=== PATIENT | male | born 1975 | race Caucasian/White ===

== ENCOUNTER 2023-05-27 00:21 | Emergency (ER) | payer MEDICAID, SELFPAY ==
[2023-05-27 00:26] VITALS: BP 122/92; PULSE 71; TEMP 36.5; O2SAT 100
--- NOTE | 2023-05-27 00:34 | W.ED.GENAD ---
Discharge Plan Discharge Details Chief Complaint: Suicide-Atempt Clinical Impression: Suicidal behavior Primary Care Provider: Unknown,Unknown ED Provider: J Carlos Greenwood Home Meds and New Rx's Prescriptions: No Action aripiprazole [Abilify] 2 mg tablet 2 mg PO DAILY Patient Comments: has not taken in 3 months. 7/ MG sertraline [Zoloft] 100 mg tablet 100 mg PO DAILY bupropion HCl 300 mg tablet extended release 24 hr 300 mg PO QAM Patient Comments: has not taken in 3 months. 725/ MG famotidine [Pepcid] 20 mg tablet 20 mg PO DAILY Patient Comments: has not taken in 3 months. 7/ MG ibuprofen 800 mg tablet 800 mg PO Q8H PRN (Reason: pain) Qty: 42 0RF Patient Comments: has not taken in 3 months. 05/27/ MG cyclobenzaprine 7.5 mg tablet See Rx Instructions PO Q8H Qty: 21 0RF Patient Comments: has not taken in 3 months. 7/ MG Rx Instructions: 7 g-1-2 tabs PO every 8 hours; Medical Decision Making This is a 48-year-old male with a past medical history of depression and suicidality who presents today via [facility] police for mental health assessment. Per [facility] police the said that the patient has stopped taking his medications for the last 2 months. The patient admits this is well. He states he stopped taking them because they were not helping at all. He has been admitted before in the past to [facility] for mental health treatment. He was found by [facility] police on the side of the road today stating that I will just jump in front of a car to . He denies any other homicidal ideations or other suicidal ideations or plans. Patient denies any alcohol use or IV drug use. No other complaints at this time. No other modifying factors. He denies any auditory or visual hallucinations. M demonstrates an upset and slightly confrontational male. No signs of intoxication. Patient appears medically stable. Certainly there is concern for patient's mental health, as well as his current suicidality and plan. We will reach out to mental health for further discussion of potential inpatient admission. Mental health recommends inpatient management. Patient will be signed out to my colleague Dr. Wisam Ponce pending placement. HPI General Date/Time Provider Initiated Documentation: 05/27/23 00:31. HPI Narrative: This is a 48-year-old male with a past medical history of depression and suicidality who presents today via [facility] police for mental health assessment. Per [facility] police the said that the patient has stopped taking his medications for the last 2 months. The patient admits this is well. He states he stopped taking them because they were not helping at all. He has been admitted before in the past to [facility] for mental health treatment. He was found by [facility] police on the side of the road today stating that I will just jump in front of a car to . He denies any other homicidal ideations or other suicidal ideations or plans. Patient denies any alcohol use or IV drug use. No other complaints at this time. No other modifying factors. He denies any auditory or visual hallucinations. Related Data Home Medications Medication Instructions Recorded Confirmed aripiprazole 2 mg tablet (Abilify) 2 mg PO DAILY 06/07/21 05/27/23 bupropion HCl 300 mg 24 hr tablet, 300 mg PO QAM 06/07/21 05/27/23 extended release cyclobenzaprine 7.5 mg tablet See Rx Instructions PO Q8H #21 tabs 06/07/21 05/27/23 famotidine 20 mg tablet (Pepcid) 20 mg PO DAILY 06/07/21 05/27/23 ibuprofen 800 mg tablet 800 mg PO Q8H PRN pain #42 tabs 06/07/21 05/27/23 sertraline 100 mg tablet (Zoloft) 100 mg PO DAILY 06/07/21 05/27/23 Previous Rx's Medication Instructions Recorded cyclobenzaprine 7.5 mg tablet See Rx Instructions PO Q8H #21 tabs 06/07/21 ibuprofen 800 mg tablet 800 mg PO Q8H PRN pain #42 tabs 06/07/21 Allergies Allergy/AdvReac Type Severity Reaction Status Date / Time hydrocodone AdvReac Intermediate Vomits Verified 05/27/23 01:12 General Stated Complaint: Suicide-Atempt SANDIE: 2 Review of Systems All systems reviewed & are unremarkable except as noted in HPI and below PFSH All Active Problems (Updated 05/27/23 @ 07:48 by J Carlos Greenwood DO) Suicidal behavior (Acute) Paraspinal muscle spasm (Acute) Right low back pain (Acute) Social History Smoking/Tobacco Use Status: Never Smoking risk assessment performed?: Yes Alcohol Intake: never Substance use type: does not use Seatbelt use: never Do you feel safe at home: Yes Do you feel safe in your relationship?: Yes Exam Narrative Exam Narrative: 1.Const: Well-nourished, Well-developed, appearing stated age 2.Eyes: PERRL, no conjunctival injection, and symmetrical lids. 3.ENT: Atraumatic external nose and ears. Moist MM. Neck: Symmetric, trachea midline, No thyromegaly. 4.CVS: +S1/S2, No murmurs or gallops. Peripheral pulses 2+ and equal in all extremities. Brisk capillary refill in all extremities. 5.RESP: Unlabored respiratory effort. Clear to auscultation bilaterally. No wheezes rales or rhonchi 6.GI: Soft, Nontender/Nondistended, No hepatosplenomegaly. No guarding or rebound. 7.MSK: Normocephalic/Atraumatic, Extremities w/o deformity or ttp No cyanosis or clubbing, Normal movement of all extremities 8.Skin: Warm, Dry. No rashes or lesions. 9.Neuro: wheat washer II-XII grossly intact. Sensation grossly intact, no focal neurologic deficits. 10.Psych: (AAO) x3. Patient does appear quite upset. No flight of ideas or pressured speech though. He does appear somewhat confrontational currently. Course Vital Signs Vital signs: Respiratory Effort Normal, Non-Labored 05/27/23 00:31
[2023-05-27 00:45] LABS: Abs Immature Grans 0.04 10^3/uL (0.0-0.06); Absolute Basophil Count 0.07 10^3/uL (0.0-0.2); Absolute Eosinophil Count 0.17 10^3/uL (0.0-0.7); Absolute Lymphocyte Count 4.08 10^3/uL (1.2-3.4); Absolute Monocyte Count 0.97 10^3/uL (0.1-0.8); Basophils % 0.6; Eosinophils % 1.4; HCT 48.1 % (40.0-50.0); HGB 17.1 g/dL (13.5-17.5); Immature Grans % 0.3; Lymphocytes % 32.8; MCH 30.5 pg (27.0-33.0); MCHC 35.6 % (32.0-36.0); MCV 86 fL (80-95); MPV 8.7 fL (8.0-11.0); Monocytes % 7.8; Neutrophils % 57.1; Platelet Count 295 10^3/uL (130-400); RDW-SD 37.8 fL; WBC 12.44 10^3/uL (4.4-10.8)
[2023-05-27 01:00] LABS: Salicylate < 2.8 mg/dL (<2.8)
[2023-05-27 01:10] LABS: ALT 82 U/L (16-63); AST 41 U/L (15-37); Alkaline Phosphatase 62 U/L (46-116); Anion Gap 15.2 mmol/L (3-11); BUN 15 mg/dL (7-18); Bilirubin, Total 0.8 mg/dL (0.2-1.0); CO2 20.8 mmol/L (21.0-32.0); CREATININE 1.2 mg/dL (0.70-1.30); Calcium 9.4 mg/dL (8.5-10.1); Chloride 105 mmol/L (98-107); Glucose 118 mg/dL (74-106); Potassium 3.8 mmol/L (3.5-5.1); Sodium 141 mmol/L (136-145); TSH (W/Ref FT4) 6.69 uIU/mL (0.36-3.74); Total Protein 8.3 g/dL (6.4-8.2)
[2023-05-27 01:11] LABS: Acetaminophen < 2 ug/mL (10-30); ETHANOL BLOOD < 3.0 mg/dL (<10)
--- NOTE | 2023-05-27 01:15 | NUR.NOTE ---
Nursing Note: Assumed care of this patient upon his arrival. Patient in paper scrubs and personal belongings have been removed from the room. Patient spoke with [facility] around 0100. CPSO at bedside.
--- NOTE | 2023-05-27 01:25 | PDOC.MHCN ---
Date of service: 05/27/23 Time of Service: 00:40 Suicide Severity Rate CSSRS Have you wished you were or wished you could go to sleep and not wake up?: Yes Have you actually had any thoughts of killing yourself?: Yes CSSRS2 Have you been thinking about how you might do this?: Yes Have you had these thoughts and had some intention of acting on them?: Yes Have you started to work out or worked out the details of how to kill yourself? Do you intend to carry out this plan?: Yes CSSRS3 Have you ever done anything, started to do anything or prepared to do anything to end your life?: No Screening Score Total Score: 4 Screening: Positive Mental Health Emergency Note Release [facility] release signed:: No Reason for Visit Client is presenting for SI with plan and intent. In the last 2 weeks has the pt presented for ES prior to today?: No Client Information Client is: New Well Housed: Yes Non Suicidal Self Injury Current: No History: No Safety Risk/Harm to Self or Others Current Ideation to Harm Self or Others: Yes to self. Intent: yes, has intent. Plan: yes,has a plan. History of suicide attempt: No history of suicide attempt reported Risk: Does risk to harm exist?: No Risk: High Risk Asssessment/Mental Status Appearance: Disheveled Attitude: Guarded Behavior: Agitated Speech: Normal Affect: Cogruent with mood Mood: Angry Thought process: Circumstational Hallucinations: No Delusions: No Attention: Unremarkable Perception: Not impaired Orientation: Fully orientated Memory: Intact Insight: Poor Judgement: Poor Neurovegetative Symptoms Sleep: Decrease Appetitie: No change Interests: Decrease Energy: Decrease Libido: Not applicable Substance Use: Do you use nicotine?: No Have you used substances in the last 7 days?: No Additional Issues: Assaultive/Threatening Behavior: No Medical Concerns: No Client engaged in active self harm w/weapon: No Threatening to run away: No Child reported abuse/neglect: No Voluntarily presenting for services: Yes Domestic violence is a concern: No Extreme Psychosis or extreme behavior is present: No Impression Client is presenting due to SI with intent and plan. Client stated that he would describe his mood as Shitty. Client stated that his plan is to walk in front of traffic. Client stated multiple times about a bullet, but denied wanting to shoot himself. Client denied any past trauma. Client stated he has SI that comes and goes. Client denied HI and NSSI. Client rated himself 5/10 for risk of acting on SI. Client stated that he had been inpatient at [facility] [facility] twice with the last being in 2013. Client denied having any supports. Client stated that he was adopted. Observed client making okay eye contact. Observed client crossing his arms. Observed client being angry/mad about being at the hospital. Plan/Disposition Recommended Disposition: Hospitalization No. Plan: Client is currently at [facility] voluntarily. Referring to [facility], [facility], and [facility]. If client goes to leave [facility] needs to be called for EE paperwork to be done. Facilities contacted if Applicable [facility] Not accepted, No bed available [facility] Not accepted, No bed available [facility] Not accepted, No bed available, [facility] Not accepted, No bed available Reports/communication Outcome discussed with: ED/Personnel
[2023-05-27 01:28] LABS: FREE T4 0.75 ng/dL (0.76-1.46)
[2023-05-27 03:17] LABS: *AMPHETAMINES SCREEN URINE Negative (Negative); *BARBITURATES SCREEN URINE Negative (Negative); *BENZODIAZEPINES SCREEN URINE Negative (Negative); Cannabinoids THC Negative (Negative); Cocaine Screen,Urine Negative (Negative); METHADONE URINE SCREEN Negative (Negative); OPIATES URINE SCREEN Negative (Negative)
[2023-05-27 03:19] LABS: Tricyclic Antidepressants Negative (Negative)
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
--- NOTE | 2023-05-27 10:14 | NUR.NOTE ---
This RN went to give pt his morning medications, pt refused stating I haven't been taking them. I've been fine. I don't want to take them. This RN stated if he takes them, it will help him feel better. Pt responded with I don't want to feel better. aware.
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
--- NOTE | 2023-05-27 15:21 | CMSP_ITS ---
Date of service: 05/27/23 Time of Service: 15:21 Care Management Safety Plan Status Status: Voluntary Reason for Wait Reason for Wait: Inpatient Admission Safety Plan Safety Plan: VOLUNTARY FOR INPATIENT PSYCHIATRIC STABILIZATION.? Patient is appropriate in all interactions since arriving at [facility]; Pt has demonstrated appropriate coping and communication skills, has articulated his or her needs and concerns and is fully engaged during staff interactions. Per report, Juancho was brought in by [facility] Police after being found by the side of the road. He stated that he was planning to jump in front of a car to end his life. His reported that he has not taken his medications for about two months. He is medically cleared, and has been seen by [facility], who is seeking inpatient psychiatric treatment. He is agreeable to this plan, currently. Safety plan has been established with patient, and care team, to adhere to patient goals, identify restrictions based on behavioral status, address nutrition, and determine allowed personal belongings, tools for hygiene and personal care. Determine level of activity including ambulation, level of supervision, visitors, and determine privileges based on behaviors and level of engagement by pt. SAFETY PLAN: 1. Will remain on suicide precautions. In Paper Clothes 2. Will remain in room under direct supervision of one-on-one staff at all times provided by CPSO; MYCHAL, COLORER H[employer]ES [employer] SKINS recorder helper gravity prospecting. 3. May have paper cups, plates, finger foods as well as a cardboard spoon with which to eat meals. 4. Follow [facility] Management of the Admitted Behavioral Health Patient policy. 5. Comfort bath system only, shower permitted with escort at RN discretion. 6. No personal belongings-soft items permitted at RN discretion. 7. Visitors- limited, at RN discretion. 8. Activities: soft cart items approved per RN discretion. 9.? Bathroom privileges with escort in the ED, available in room without limitation on M/S. 10. Phone: incoming/outgoing calls via cordless phone at RN discretion. 11. Due to VOLUNTARY status, if patient wishes to leave [facility], staff will contact [facility] Crisis Screener ([phone]) and On-Call Group Managing Director ([phone]) as soon as possible. In the event of elopement, notify [facility] Police ([phone]). Patient is currently voluntarily at [facility] and seeking inpatient admission when a bed becomes available. [facility] Frontline Switchboard Operator Supervisor will continue seeking placement. Please contact the Front Edger Group Managing Director ([phone]) and [facility] Switchboard Operator Supervisor ([phone]) for any needed changes in the Safety Plan. Safety plan has been provided to interdepartmental care team.
[2023-05-27] MEDS: ARIPiprazole 2 MG TAB PO (18:55)
[2023-05-27] MEDS: buPROPion-XL 150 MG TABCR 300 MG PO (18:55)
[2023-05-27] MEDS: Sertraline 100 MG TAB PO (18:55)
--- NOTE | 2023-05-27 20:15 | NUR.NOTE ---
Nursing Note: This RN received report and took over care for the patient at 1900. in room at bedside. CPSO outside room.
[2023-05-28] MEDS: diphenhydrAMINE 25 MG CAP 50 MG PO (00:40)
[2023-05-28] MEDS: Melatonin 3 MG TAB 12 MG PO (00:40)
--- NOTE | 2023-05-28 08:49 | CMSP_ITS ---
Date of service: 05/28/23 Time of Service: 08:49 Care Management Safety Plan Status Status: Voluntary Reason for Wait Reason for Wait: Inpatient Admission and Other (Insurance attainment) Safety Plan Safety Plan: VOLUNTARY FOR INPATIENT PSYCHIATRIC STABILIZATION.? Patient is appropriate in all interactions since arriving at [facility]; Pt has demonstrated appropriate coping and communication skills, has articulated his or her needs and concerns and is fully engaged during staff interactions. Per report, Juancho was brought in by [place] [employer] after being found by the side of the road. He stated that he was planning to jump in front of a car to end his life. His reported that he has not taken his medications for about two months. He is medically cleared, and has been seen by [facility], who is seeking inpatient psychiatric treatment. He is agreeable to this plan, currently. Safety plan has been established with patient, and care team, to adhere to patient goals, identify restrictions based on behavioral status, address nutrition, and determine allowed personal belongings, tools for hygiene and personal care. Determine level of activity including ambulation, level of supervision, visitors, and determine privileges based on behaviors and level of engagement by pt. [employer] insurance still not active (was reportedly anticipated to be active this morning). ALLYN Davey reports [facility] reviewing referral; requiring insurance information. SAFETY PLAN: 1. Will remain on suicide precautions. In Paper Clothes 2. Will remain in room under direct supervision of one-on-one staff at all times provided by CPSO; MYCHAL, HELMET HAT PUNCHER flotation tank operator. 3. May have paper cups, plates, finger foods as well as a cardboard spoon with which to eat meals. 4. Follow [facility] Management of the Admitted Behavioral Health Patient policy. 5. Comfort bath system only, shower permitted with escort at RN discretion. 6. No personal belongings-soft items permitted at RN discretion. 7. Visitors- limited, at RN discretion. 8. Activities: soft cart items approved per RN discretion. 9.? Bathroom privileges with escort in the ED, available in room without limitation on M/S. 10. Phone: incoming/outgoing calls via cordless phone at RN discretion. 11. Due to VOLUNTARY status, if patient wishes to leave [facility], staff will contact [facility] Crisis Screener ([phone]) and On-Call Pellet Mill Operator ([phone]) as soon as possible. In the event of elopement, notify [facility] Police ([phone]). Patient is currently voluntarily at [facility] and seeking inpatient admission when a bed becomes available. [facility] Frontline Rn Wound Care will continue seeking placement. Please contact the Ladder Operator Pellet Mill Operator ([phone]) and [facility] Rn Wound Care ([phone]) for any needed changes in the Safety Plan. Safety plan has been provided to interdepartmental care team.
--- NOTE | 2023-05-28 10:51 | NUR.NOTE ---
pt to m/s for a shower cpso and security in attendance Nursing Note:
--- NOTE | 2023-05-28 13:39 | PDOC.MHPN2 ---
Date of service: 05/28/23 Time of Service: 13:39 Mental Health Emergency Note Release [facility] release signed:: Yes Reason for Visit Client is presenting due to SI with intent and plan. This is a reassessment and was completed face to face. In the last 2 weeks has the pt presented for ES prior to today?: Unknown Impression The client is a 48 year old, male who lives with his in [facility]. He is unemployed at this time. The client presented to [facility] ED on 05.27.23 due to suicidal ideation with intent and plan. HE was picked up on 05.27 by police after disclosing he wanted to via vehicle impact per his conversation with ANN Gray on 05.27.23. He informed ANN Gray he had nothing to live for not even his and children. Today the client denied SI but either would not or could not elaborate what was different. He expressed that he is not really happy about being here. However, at the same time, he stated that he feels the same as he did yesterday. He reported he had a hard time falling asleep but was given some meds and that helped. He ate breakfast today. He was not interested in an activity box but stated that the TV has distracted him some. The client requested a shower. The client made fair eye contact while laying in his bed. Plan/Disposition Recommended Disposition: Hospitalization facilities contacted. Plan: The client's insurance had not been showing even though it should so Care Management was outreaching to [facility] for help on his. This clinician shared with the ED charge nurse that he would like a shower. They will work on this. Person reported agreement to plan: Yes Facilities contacted if Applicable [facility] Not accepted, Other (waiting on insurance verification ) [facility] Not accepted, No bed available [facility] Not accepted, No bed available, [facility] Not accepted, No bed available Reports/communication Outcome discussed with: ED/Personnel
--- NOTE | 2023-05-28 16:28 | W.EDPROG ---
Date of service: 05/28/23 Time of Service: 21:39 Medical Decision Making This patient was signed out to me. Please see previous notes for H&P and initial eval. In brief, patient with history of depression, had stopped taking his home medications due to concern for being able to use them while at work ([employer]). Was found standing in/near traffic and reportedly contemplating suicide. Does have borderline low free T4 (0.75), subclinical hypothyroidism, depressive symptoms attributed to known disorder and med non-compliance. Medically cleared, pending voluntary psych placement. Accepted to [facility] under Dr. Bejarano. Transferred via [facility]. Lab Data Lab results reviewed: Yes I reviewed the patient's lab results. Lab results narrative: Laboratory Tests Range/Units 05/27/23 05/27/23 05/27/23 00:32 00:32 00:32 WBC (4.4-10.8) 10^3/uL 12.44 H RBC (4.36-5.78) 10^6/uL 5.60 Hgb (13.5-17.5) g/dL 17.1 Hct (40.0-50.0) % 48.1 MCV (80-95) fL 86 MCH (27.0-33.0) pg 30.5 MCHC (32.0-36.0) % 35.6 RDW (11.8-14.1) % 12.0 Plt Count (130-400) 10^3/uL 295 MPV (8.0-11.0) fL 8.7 Immature Gran % 0.3 Neutrophils % 57.1 Lymphocytes % 32.8 Monocytes % 7.8 Eosinophils % 1.4 Basophils % 0.6 Nucleated RBC % (0.0-0.3) % 0.0 Absolute Neutrophils (1.2-6.7) 10^3/uL 7.10 H Absolute Lymphocytes (1.2-3.4) 10^3/uL 4.08 H Absolute Monocytes (0.1-0.8) 10^3/uL 0.97 H Absolute Eosinophils (0.0-0.7) 10^3/uL 0.17 Absolute Basophils (0.0-0.2) 10^3/uL 0.07 Sodium (136-145) mmol/L 141 Potassium (3.5-5.1) mmol/L 3.8 Chloride (98-107) mmol/L 105 Carbon Dioxide (21.0-32.0) mmol/L 20.8 L Anion Gap (3-11) mmol/L 15.2 H BUN (7-18) mg/dL 15 Creatinine (0.70-1.30) mg/dL 1.2 Est GFR (CKD-EPI 2020) (mL/min/1.73m2) 74.60 Glucose (74-106) mg/dL 118 H Calcium (8.5-10.1) mg/dL 9.4 Total Bilirubin (0.2-1.0) mg/dL 0.8 AST (15-37) U/L 41 H ALT (16-63) U/L 82 H Alkaline Phosphatase (46-116) U/L 62 Total Protein (6.4-8.2) g/dL 8.3 H Albumin (3.4-5.0) g/dL 4.0 TSH (0.36-3.74) uIU/mL 6.69 H Free T4 (0.76-1.46) ng/dL 0.75 L Salicylates (<2.8) mg/dL < 2.8 Urine Opiates Screen (Negative) Urine Methadone Screen (Negative) Acetaminophen (10-30) ug/mL < 2 Ur Barbiturates Screen (Negative) Ur Tricyclics Screen (Negative) Ur Amphetamines Screen (Negative) U Benzodiazepines Scrn (Negative) Urine Cocaine Screen (Negative) Ur THC Screen (Negative) Ethyl Alcohol (<10) mg/dL < 3.0 Range/Units 05/27/ 03:00 WBC (4.4-10.8) 10^3/uL RBC (4.36-5.78) 10^6/uL Hgb (13.5-17.5) g/dL Hct (40.0-50.0) % MCV (80-95) fL MCH (27.0-33.0) pg MCHC (32.0-36.0) % RDW (11.8-14.1) % Plt Count (130-400) 10^3/uL MPV (8.0-11.0) fL Immature Gran % Neutrophils % Lymphocytes % Monocytes % Eosinophils % Basophils % Nucleated RBC % (0.0-0.3) % Absolute Neutrophils (1.2-6.7) 10^3/uL Absolute Lymphocytes (1.2-3.4) 10^3/uL Absolute Monocytes (0.1-0.8) 10^3/uL Absolute Eosinophils (0.0-0.7) 10^3/uL Absolute Basophils (0.0-0.2) 10^3/uL Sodium (136-145) mmol/L Potassium (3.5-5.1) mmol/L Chloride (98-107) mmol/L Carbon Dioxide (21.0-32.0) mmol/L Anion Gap (3-11) mmol/L BUN (7-18) mg/dL Creatinine (0.70-1.30) mg/dL Est GFR (CKD-EPI 2020) (mL/min/1.73m2) Glucose (74-106) mg/dL Calcium (8.5-10.1) mg/dL Total Bilirubin (0.2-1.0) mg/dL AST (15-37) U/L ALT (16-63) U/L Alkaline Phosphatase (46-116) U/L Total Protein (6.4-8.2) g/dL Albumin (3.4-5.0) g/dL TSH (0.36-3.74) uIU/mL Free T4 (0.76-1.46) ng/dL Salicylates (<2.8) mg/dL Urine Opiates Screen (Negative) Negative Urine Methadone Screen (Negative) Negative Acetaminophen (10-30) ug/mL Ur Barbiturates Screen (Negative) Negative Ur Tricyclics Screen (Negative) Negative Ur Amphetamines Screen (Negative) Negative U Benzodiazepines Scrn (Negative) Negative Urine Cocaine Screen (Negative) Negative Ur THC Screen (Negative) Negative Ethyl Alcohol (<10) mg/dL Sign Out Sign Out Data: Sign Out Comment: Suicidal, wanted to walk in front of a car. Here voluntarily. Pending Last updated by J Carlos Greenwood DO at 05/27/23 07:48 Sign Out Comment: [facility], pending placement; here so patient took his meds Last updated by Francis Amezquita MD at 05/27/23 19:59 Sign Out Comment: Depression suicidality. Stable throughout the night. No interventions given except for Benadryl at patient's request Last updated by J Carlos Greenwood DO at 05/28/23 07:27 Sign Out Comment: [facility], [place], pending placement; resting comfortably, no changes today Last updated by Francis Amezquita MD at 05/28/23 16:09 Discharge Plan Disposition Patient Dis[facility] Condition: Serious Discharge Details Clinical Impression: Suicidal behavior Primary Care Provider: None,None ED Provider: Sudha Escobar Home Meds and New Rx's Prescriptions: No Action aripiprazole [Abilify] 2 mg tablet 2 mg PO DAILY Patient Comments: has not taken in 3 months. 05/27/ MG sertraline [Zoloft] 100 mg tablet 100 mg PO DAILY bupropion HCl 300 mg tablet extended release 24 hr 300 mg PO QAM Patient Comments: has not taken in 3 months. 05/27/ MG famotidine [Pepcid] 20 mg tablet 20 mg PO DAILY Patient Comments: has not taken in 3 months. 05/27/ MG ibuprofen 800 mg tablet 800 mg PO Q8H PRN (Reason: pain) Qty: 42 0RF Patient Comments: has not taken in 3 months. 725/23 MG cyclobenzaprine 7.5 mg tablet See Rx Instructions PO Q8H Qty: 21 0RF Patient Comments: has not taken in 3 months. 7/25/23 MG Rx Instructions: 7 g-1-2 tabs PO every 8 hours;
--- NOTE | 2023-05-28 20:21 | NUR.NOTE ---
Pt stated she spoke to nurse before me and asked about getting a hospital bed. was notified that a hospital bed would not be feasible due to its large size compared to the room size and the safety risk that it would cause. Pt's was informed that the pt is sleeping. Pt then asked for a transfer to [facility] and was informed that would be most likely improbable due to [facility] likely declining an interfacility transfer related to the pt's diagnosis. was informed that nurse would reach out to the current provider and pass her concerns on, but there would likely be no transfer. Pt's delivered clean underwear to him.
[2023-05-28] MEDS: buPROPion-XL 150 MG TABCR 300 MG PO (21:14)
[2023-05-28] MEDS: ARIPiprazole 2 MG TAB PO (21:14)
[2023-05-28] MEDS: Sertraline 100 MG TAB PO (21:14)
== END 2023-05-28 21:44 ==
PROVIDERS: Student in an Organized Health Care Education/Training Program; Emergency Provider Student in an Organized Health Care Education/Training Program
DX: R45.851 Suicidal ideations (principal); F32.A Depression, unspecified; Z91.148 Patient's other noncompliance with medication regimen for other reason
CPT/HCPCS: 80053; 80307; 99285; 80320; 80329; 84439; 84443; 85025